=== PATIENT | female | born 1990 | race Caucasian/White ===

== ENCOUNTER 2017-04-06 10:58 | Emergency (ER) | payer SELFPAY ==
[~2017-04-06] VITALS: Ht 162.6 cm; Wt 48.5 kg
--- NOTE | 2017-04-06 11:02 | NUR ---
CAALED IN WR- NO ANSWER
--- NOTE | 2017-04-06 11:15 | NUR ---
BIB SELF, C/O VAGINAL BLEEDING X YESTERDAY, NO PAIN, NAD NOTED, VSS, RESP EVEN AND UNLABORED, WAITING FOR MD LIBAN.
[2017-04-06 11:44] LABS: BASOPHILS % (AUTO) 0.8 % (0.0-2.0); EOSINOPHILS % (AUTO) 0.8 % (0.0-6.0); HEMATOCRIT 37 % (33-45); HEMOGLOBIN 12.5 g/dL (11.5-14.8); LYMPHOCYTES % (AUTO) 26.8 % (20.0-44.0); MEAN CORPUSCULAR HEMOGLOBIN 28 PG (26.0-33.0); MEAN CORPUSCULAR HGB CONC 34 g/dl (31.0-36.0); MEAN CORPUSCULAR VOLUME 83 fL (82-100); MONOCYTES # (AUTO) 0.3 /CMM (0.1-1.30); MONOCYTES % (AUTO) 7.6 % (2.0-12.0); NEUTROPHILS # (AUTO) 2.5 /CMM (1.8-8.9); PLATELET COUNT (AUTO) 154 /CMM (150-450); RDW COEFFICIENT OF VARIATION 12.9 (11.5-15.0); RED BLOOD CELL COUNT(AUTO) 4.41 MIL/uL (4.0-5.2); WHITE BLOOD COUNT (AUTO) 3.8 K/uL (4.3-11.0)
--- NOTE | 2017-04-06 12:27 | NUR ---
URINE SENT TO LAB
[2017-04-06 13:36] VITALS: BP 129/80
--- NOTE | 2017-04-06 13:36 | NUR ---
Patient discharged to home in stable condition. Written and verbal after care instructions given. Patient verbalizes understanding of instruction.
--- NOTE | 2017-04-06 13:48 | NUR ---
PT DISCHARGE DIAGNOSIS IS MENORRHAGIA
== END 2017-04-06 13:38 | disposition home or self-care (01) ==
LOC: ER 11:00
DX: N92.0 Excessive and frequent menstruation with regular cycle (principal)
CPT/HCPCS: 36415; 76856; 84703; 85025; 99285; A4606; Z7610